=== PATIENT | male | born 1940 | race Caucasian/White ===

== ENCOUNTER → 2020-04-02 13:08 | Outpatient (CLI) | payer MEDICARE, OTHER, SELFPAY ==
[2020-04-02 13:50] LABS: Add Manual Diff / Slide Review NO; Basophils Absolute Auto 100 /uL (0-100); Basophils Percent Auto 1.1 % (0-2); Eosinophils Absolute Auto 300 /uL (0-450); Eosinophils Percent Auto 2.9 % (2-4); Hematocrit 40.3 % (41-53); Hemoglobin 13.6 g/dL (13.5-17.5); Lymphocytes Absolute Auto 700 /uL (1100-4500); Lymphocytes Percent Auto 7.4 % (25-40); Mean Corpuscular HGB Conc 33.8 % (30-36); Mean Corpuscular Hemoglobin 30.8 PG (26-34); Mean Corpuscular Volume 91.1 fL (80-100); Monocytes Absolute Auto 700 /uL (0-900); Monocytes Percent Auto 7.3 % (3-14); Neutrophils Absolute Auto 8000 /uL (1500-7000); Neutrophils Percent Auto 81.3 % (50-75); Platelet Count 229 X10^3/uL (150-400); Red Blood Cell Count 4.42 X10^6/uL (4.5-5.9); Red Cell Distribution Width 16.5 % (11.6-14.8); White Blood Cell Count 9.9 X10^3/uL (4.5-11.0)
[2020-04-02 15:34] LABS: BUN Creatinine Ratio 17.1 (6-22); Blood Urea Nitrogen 18 mg/dL (9-20); Calcium 9.6 mg/dL (8.4-10.2); Carbon Dioxide 24 mmol/L (22-32); Chloride 102 mmol/L (98-107); Estimated Glomerular Filt Rate > 60.0 mL/min (>60); Glucose 201 mg/dL (80-110); HEMOLYSIS < 15 (0-50); Potassium 4.9 mmol/L (3.4-5.1); Sodium 138 mmol/L (137-145)
== END ==
PROVIDERS: Referring Provider Orthopaedic Surgery; Visit Provider Orthopaedic Surgery
DX: Z01.818 Encounter for other preprocedural examination (principal); Z01.812 Encounter for preprocedural laboratory examination
CPT/HCPCS: 36415; 80048; 85025; 93005

== ENCOUNTER → 2020-04-05 10:55 | Outpatient (CLI) | payer MEDICARE, OTHER, SELFPAY ==
[2020-04-06 09:45] LABS: COVID19 Sendout NOT DETECTED (Not Detect)
== END ==
PROVIDERS: Visit Provider Physician Assistant
DX: Z01.812 Encounter for preprocedural laboratory examination (principal)
CPT/HCPCS: 87635

== ENCOUNTER 2020-04-08 10:50 | Inpatient (IN) | payer MEDICARE, OTHER, SELFPAY ==
[2020-04-01 13:58] VITALS: BMI 30.6
[2020-04-08] VITALS (17 sets, daily range): BP systolic 91–148; BP diastolic 52–84; PULSE 72–103; RESP 10–18; TEMP 36–37; O2SAT 75–97; BMI 30.6
--- NOTE | 2020-04-08 07:45 | DI.RAD.S_ITS ---
PROCEDURE: XR KNEE LT 1TO2V INDICATIONS: post op total knee TECHNIQUE: 2 view(s) of the knee acquired. COMPARISON: None. FINDINGS: Bones: Patient is status post knee joint arthroplasty. Hardware components are in expected positions. Visualized bony structures are intact. Soft tissues: Overlying postoperative changes are noted. Scattered vascular calcifications. IMPRESSION: Expected postoperative appearance Dictated by: Nate Batista M.D. on 04/08/2020 at 17:03 Approved by: Nate Batista M.D. on 04/08/2020 at 17:04
[2020-04-08] MEDS: CELECOXIB 200 MG CAPSULE PO (11:45)
[2020-04-08] MEDS: PREGABALIN 75 MG CAPSULE PO (11:45)
[2020-04-08] MEDS: ACETAMINOPHEN 325 MG TABLET 975 MG PO (11:46)
[2020-04-08] MEDS: LACTATED RINGERS 1,000 ML 42 ML IV ×2 (11:49→14:23)
--- NOTE | 2020-04-08 12:33 | PM.PREOP ---
Pre-operative Note COVID-19 COVID-19 status: Negative Result date/Date tested (Pos, Neg/Pending): 04/05/20 Interval Note History & Physical reviewed/Exam performed by Physician: Yes Changes to H&P: No
[2020-04-08] MEDS: INSULIN REGULAR 100 UNIT/ML 3 ML VIAL SUBCUT (13:13)
--- NOTE | 2020-04-08 14:03 | SUR.OPER ---
Supine on padded OR bed. Pillow under head, arms secured on padded armboards <90 degree abduction. Safety belt across torso. Non-operative leg secured with tape over blanket over leg. Operative leg secured in DeMayo/Ronny positioner. Foam padded brace at thigh of operative leg.
[2020-04-08] MEDS: CEFAZOLIN 2 GM/100 ML FROZ.PIGGY IV ×2 (14:14→21:56)
[2020-04-08] MEDS: BUPIVACAINE LIPOSOME 266 MG/20 ML VIAL INJ (14:15)
[2020-04-08] MEDS: TRANEXAMIC ACID 1,000 MG VIAL 2000 MG INJ ×2 (14:15→14:55)
[2020-04-08] MEDS: MORPHINE 4 MG/ML INJ INJ (14:16)
[2020-04-08] MEDS: BUPIVACAINE 0.25% W/ EPI 30 ML VIAL 60 ML INJ (14:16)
--- NOTE | 2020-04-08 14:29 | SUR.OPER ---
Pt.'s left foot red and swollen, noticed when patient positioned on OR bed, before the prep.
--- NOTE | 2020-04-08 15:21 | P.OP_ITS ---
Operative Date/Time/Diagnoses Date of procedure: 04/08/20 Time of procedure: 15:21 Pre-op diagnosis: Left knee osteoarthritis and chondrocalcinosis Post-op diagnosis: same Procedure & Clinicians Procedure: Left total knee replacement Same procedure as scheduled: Yes Indications: The patient has had progressively worsening left knee pain with radiographic changes consistent with arthritis and chondrocalcinosis. Non- operative management has failed and the patient has requested total knee replacement. The risks, benefits and alternatives to surgery were discussed with the patient prior to proceeding. Risks discussed included, but were not limited to, failure to relieve pain, stiffness, infection, nerve damage, deep venous thrombosis, pulmonary embolism, stroke, coma, heart attack, permanent paralysis and , as well as the potential need for eventual revision of the prosthetic. Surgeon: Zack Hernández [employer] Specialist: Elsa Samano Click Yes if Unassisted: No Anesthesia Type: General, Spinal and Local Operative Notes Findings: Severe medial and patellofemoral osteoarthritis with chondrocalcinosis in the cartilage and menisci. Closure Type: primary Specimen(s): none sent Prosthetic devices, grafts, tissues, transplants, or devices: Implants used in this procedure were manufactured by the [employer] and included the BCS II Journey total knee replacement with a size 5 left cobalt chromium femoral component, a size 5 left non porous tibial base plate, a 9 mm cross-linked constrained articular insert and a 35 mm oval Gracie II patella. Applied: implant(s) Estimated Blood Loss (mL): 25 Blood products transfused: none Tourniquet time (min): 57 Procedure in detail: The patient was seen in the pre-operative area, where the left knee was identified as the operative site and this was marked with my initials. The patient received pre-operative antibiotics, and was taken to the operating room and placed on the operative table in the supine position. After satisfactory anesthesia, a per diem physical therapist out was performed. The left leg was encircled with a tourniquet about the proximal thigh, and the leg was prepared from the toes to the tourniquet with ChloroPrep in the usual fashion and draped through sterile drapes. The leg was elevated and exsanguinated with Eschmark bandage and the tourniquet inflated to 250 mmHg pressure. The knee was approached through an approximately 18 cm incision centered over the patella and carried into the knee through a medial parapatellar arthrotomy. The anterior osteophytes and soft tissues were removed. The rotational landmarks of [place]'s line and the transepicondylar axis were marked on the femur with electrocautery, and intramedullary guide holes for the femur and tibia were created. The distal femoral cut was made in 6 degrees of valgus using the intramedullary guide at the +2 cut setting due to a pre-existing flexion contracture. The proximal tibial cut was then made using the intramedullary guide, taking 9 mm of bone off the less involved side. The extension gap was checked and the rotation of the femoral component confirmed with the gap sina ncing blocks, the flexion gap was slightly tight. The anterior, posterior and chamfer cuts were then made by downsizing the femoral component and moving it anteriorly to correct the tight flexion gap. The posterior osteophytes and soft tissues were then removed. The posterior capsule was injected with part of a mixture of 50 ml 0.25% Marcaine mixed with 20 ml Exparel and 4 mg of morphine for post-operative pain control. The remainder of this mixture was injected into the capsule and subcutaneous tissues during cement curing. The tibia was prepared with the rotation set by an extra medullary guide. Trial tibial and femoral components were then placed and the intercondylar notch cut through the femoral trial. Range of motion was 0-135 degrees, with good stability throughout the range except for mild gapping in deep flexion on the medial side. I elected to implant a constrained tibial insert as a result. This provided excellent stability throughout the range. The patella was then cut to accommodate the patellar prosthetic. There was no need for a lateral release. The trials were then removed, and the femoral hole plugged with a bone plug. The bone was prepared with pulsatile lavage, and dried with a sponge. Cement was applied and the final prosthetics placed. Excess cement was removed during and after cement curing. After confirming there was no extruded cement posteriorly, the final tibial insert was placed. The knee was copiously irrigated and the tourniquet deflated. Hemostasis was obtained. The capsule was closed with interrupted # 2 polyester sutures. The subcutaneous layer was closed with 3-0 Vicryl, and the skin with a running 3-0 V-Lock suture and Dermabond. An Aquacel Ag dressing was applied and the patient was taken to recovery having tolerated the procedure well. Complications: none Post-operative Condition: stable Disposition: PACU Plan for aftercare: The patient will be maintained on a standard total knee replacement protocol with weight bearing as tolerated. The patient will receive aspirin and sequential compression devices for DVT prophylaxis. The patient will be discharged home when safe for the home environment.
--- NOTE | 2020-04-08 16:13 | SUR.PHASEI ---
Patient A/O. Tolerating po. Able to lift left leg. Left DP +1. Left food red and edematous.
[2020-04-08] MEDS: LACTATED RINGERS 1,000 ML 100 ML IV (18:37)
[2020-04-08] MEDS: INSULIN ASPART 100 UNIT/ML INSULN PEN SUBCUT ×2 (18:38→21:58)
[2020-04-08] MEDS: DOCUSATE 100 MG CAPSULE PO (21:55)
[2020-04-08] MEDS: DABIGATRAN 75 MG CAPSULE 150 MG PO (21:55)
[2020-04-08] MEDS: ACETAMINOPHEN 325 MG TABLET 650 MG PO (21:55)
[2020-04-08] MEDS: TRAZODONE 50 MG TABLET PO (21:56)
--- NOTE | 2020-04-08 23:21 | PC.NURSE ---
Post-op note: Flora brought from PACU to rm 213, awake, oriented x3 and situation. VS stable, 2L O2 sat 92-98% depending on awakeness. I tried to wean O2 to 1L but continuous pulse ox alarmed at 88%, I then turned O2 back to 2L. He reports sleep apnea but said I don't even know where my machine is--I don't wear it, I haven't for a couple of years. IS & IS teaching given, rationale/prevention of pneumonia explained. Able to get to 2500 on IS. Instructed use q1hour. Reported numb to his left knee earlier but now reports good sensation to entire leg, wiggling toes LLE, doing ankle wave with LLE, wearing SCD to LLE. L heel sore where he reports hitting it with the wheel of his wheelchair, small dime-sized area of flaking skin observed. L foot edematous, earlier 2+ edema to foot, none to ankle or lower leg. Now edema 3+, LLE has been elevated on one pillow tonight. Pt said I usually elevate it in the evenings and it helps it go down. Reports RLE with BKA 1-1/2 years ago. RLE stump with healed scar, leg has good color, no redness or swelling. IVF infusing to LFA with no difficulty, antibx infused per schedule. Poor appetite, refused 1/2 of dinner, requesting protein drink instead. Since 2199 patient reports some urge to void, urinal at bedside. I instructed him to call us if he is unable to void, patient said it may help him to sit up and put his feet down. I told him we could either put the bed into chair position or assist him to sit up at the edge of bed with leg dangling. Fall precautions in place, patient using call button appropriately, alarm active for safety.
[2020-04-09] VITALS (7 sets, daily range): BP systolic 122–174; BP diastolic 71–96; PULSE 95–113; RESP 14–18; TEMP 36.2–37; O2SAT 92–97
[2020-04-09] MEDS: OXYCODONE IR 5 MG TABLET PO ×3 (01:44→09:35)
--- NOTE | 2020-04-09 02:23 | PC.NURSE ---
Addendum entered by Ida Marin R.N. 04/09/20 03:44: States pain improved to only 4/10 and requesting additional pain medication so given additional 5mg of Oxycodone (ordered for 5-10mg and was only given 5mg earlier). Still has been unable to urinate but still declines catheterization. Original Note: Patient is alert and oriented. Breath sounds CTA but was desating at shift change so placed on oxygen at 2L/min per NC with sat now at 96%; on continuous oximetry. HR irregular but rate controlled; has hx of afib. Has AICD. Denies nausea. BT present but denies flatus. Has not yet voided but denies feeling pressure/discomfort and doesn't feel urge to void. Bladder scan showing 407cc in bladder but patient declines in/out cath at this time. Is able to move himself in bed. Has not yet been out of bed following surgery yesterday. Has BKA of right leg. Aquacel dressing covered with santiago wrap to left LE is CDI. Wearing bilateral calf SCD's. States pain is now at 5/10 so medicated with Oxycodone; does have ice packs to knee. Fall risk score is moderate; bed alarm is activated.
[2020-04-09] MEDS: LACTATED RINGERS 1,000 ML 100 ML IV (04:48)
[2020-04-09] MEDS: LEVOTHYROXINE 125 MCG TABLET PO (05:32)
[2020-04-09] MEDS: CEFAZOLIN 2 GM/100 ML FROZ.PIGGY IV (05:32)
[2020-04-09 06:38] LABS: Hematocrit 35.6 % (41-53)
--- NOTE | 2020-04-09 07:55 | PM.PNPO.1 ---
Subjective Subjective Date Patient Seen: 04/09/20 Time Patient Seen: 07:55 Interval history: No significant complaints this morning. Pain is under control. Exam Vital Signs (past 8 hours): - 04/09/20 04:43 Temperature 98.5 F Pulse Rate 99 H Respiratory Rate 18 Blood Pressure 122/71 Pulse Oximetry 94 Oxygen Delivery Method Nasal Cannula Oxygen Flow Rate 2 Narrative Exam Narrative: Left knee wound is dressed with no drainage on the bandage. Calf is soft. Light touch and motion are intact in the left lower extremity. Objective Labs Result Diagrams: 04/09/20 06:20 Labs: Laboratory Results - last 24 hr 04/09/20 06:20 Hgb 12.0 L Hct 35.6 L Assessment & Plan Post-op Postoperative Procedures: Procedures Operation Date: 04/08/20 12:45 Actual Procedures Side Surgeon p Total Knee Arthroplasty Left Zack Hernández MD Postoperative day: 1 Postoperative status: doing well Postoperative status narrative: Stable postoperative day 1 status post left total knee replacement. The patient also has a right below-knee amputation which will significantly delay his rehabilitation and probably will require residential facility placement prior to his return to his assisted living facility. The patient also has diabetes which will be monitored and appropriately treated with a sliding scale in addition to his metformin. Postoperative plan: routine post-op care Postoperative plan narrative: Physical therapy today. We will monitor his progress and depending on how well he does he may go to his assisted living or residential. Discharge planning has been consulted to arrange for this. Time Spent With Patient Time with patient: less than 15 minutes
[2020-04-09] MEDS: FLUoxetine 10 MG CAPSULE PO (08:52)
[2020-04-09] MEDS: INSULIN ASPART 100 UNIT/ML INSULN PEN SUBCUT ×4 (08:53→21:14)
[2020-04-09] MEDS: DOCUSATE 100 MG CAPSULE PO ×2 (08:59→21:08)
[2020-04-09] MEDS: METFORMIN HCL 500 MG TABLET 1000 MG PO ×2 (08:59→17:45)
[2020-04-09] MEDS: POTASSIUM CHLORIDE 10 MEQ TAB PO (08:59)
[2020-04-09] MEDS: PANTOPRAZOLE 20 MG TABLET PO (08:59)
[2020-04-09] MEDS: ACETAMINOPHEN 325 MG TABLET 650 MG PO ×3 (09:00→21:08)
[2020-04-09] MEDS: DULOXETINE 30 MG CAPSULE PO (09:00)
[2020-04-09] MEDS: ASPIRIN EC 81 MG TABLET PO (09:00)
[2020-04-09] MEDS: ATORVASTATIN 20 MG TABLET PO (09:00)
[2020-04-09] MEDS: FUROSEMIDE 40 MG TABLET PO (09:01)
[2020-04-09] MEDS: METOPROLOL ER 50 MG TABLET PO (09:01)
[2020-04-09] MEDS: DABIGATRAN 75 MG CAPSULE 150 MG PO ×2 (09:03→21:13)
[2020-04-09] MEDS: FERROUS SULFATE 325 MG TABLET PO (09:03)
[2020-04-09] MEDS: HYDROMORPHONE 0.5 MG INJ 0.2 MG IV (10:34)
--- NOTE | 2020-04-09 11:09 | PT.IIE ---
Current Diagnoses Other chondrocalcinosis, unspecified site (04/08/20) Bilateral primary osteoarthritis of knee (04/08/20) Surgery Performed Operation Date: 04/08/20 12:45 Actual Procedures p Total Knee Arthroplasty(Left) - Zack Hernández MD Surgical History (Last Updated 04/01/20 @ 14:22 by Jamila Velasco, RN) History of right below knee amputation (Acute 2018) History of total right hip arthroplasty (Acute) History of vasectomy (Acute) Hx of hernia repair (Acute) Hx of right knee surgery (Acute) Hx of thumb surgery (Acute) Medical History (Last Updated 04/02/20 @ 12:35 by Jamila Velasco RN) Arrhythmia (Acute) Atrial fibrillation (Acute) Cardiac defibrillator in place (Acute 2013) CHF (congestive heart failure) (Acute) Depression (Acute) Diabetes (Acute) Diabetic ulcer of toe (Acute) Diverticulitis (Acute 1998) Easy bruisability (Acute) Edema (Acute) HLD (hyperlipidemia) (Acute) HTN (hypertension) (Acute) Hx of agent [place] exposure (Acute) Hypothyroid (Acute) Large bowel perforation (Acute 1998) Myocardial infarction (Acute 1998) Osteoarthritis (Acute) Prostate cancer (Acute) Sleep apnea (Acute) Physical Therapy Inpatient Evaluation/Re-Eval M1 PT/OT-IP Prior Functional Status Start: 04/09/20 08:27 Freq: NEEDED Status: Active Protocol: Document 04/09/20 08:58 HH (Rec: 04/09/20 09:40 [id number]) Medical Review Prior Functional Status Medical History Reviewed Yes Diet/Fluid Consistency Regular Communication no deficits noted. able to make needs known. [place] Mobility and Gait Pt was not mobile for the past 3-4 months d/t L knee pain and he has been w/c bound. Pt has been using stand pivot for toilet/ shower bench transfer but has not been walking. Pt has BKA approx 2 years ago and he was able to amb without AD at one point. He described he always WB mostly on his LLE. Activities of Daily Living and IADL's Pt has been using W/C and stand pivot for toilet/ shower bench transfer without assistance. Pt lives in a SNF with elevator access. Social History Household Members none Living Arrangements Assisted Living Number of Floors (Floors) 3 or More Floors Number of Stairs To Enter/Railing? SNF with elevator accesss Home Environment High Toilet,Walk in Shower Home Equipment Four Wheel Walker,Straight Cane,Raised Toilet Seat w/ Armrests,Tub Transfer Bench, Grab Bars Near Toilet,Grab Bars In Shower Employment Status Retired Additional Social History Comment Pt lives in an KEL in [facility] who had BKA approx 2 years ago but pt has significant decline in mobility d/t increase in L knee pain. M2 PT-IP Current Condition Start: 04/09/20 08:27 Freq: NEEDED Status: Active Protocol: Document 04/09/20 08:58 HH (Rec: 04/09/20 09:40 [email or web address]) Physical Therapy Current Condition Current Condition Evaluation Date 04/09/20 Treatment Diagnosis L TKA, R BKA 2 years ago, difficulty in walking. Onset Date 04/08/20 Weight Bearing Status Weight Bearing Status Weight Bear as Tolerated M3 PT-IP Subjective Start: 04/09/20 08:27 Freq: NEEDED Status: Active Protocol: Document 04/09/20 08:58 HH (Rec: 04/09/20 09:40 [email or web address]) Subjective Physical Therapy Visit Type Type Initial Evaluation Visit Start Time 08:58 Visit Stop Time 09:25 Total Visit Minutes 27 Number of POLY OPERATOR Visits 0 Physical Therapy Visit Comments Patient Comments My knee hurts like hell but i want to try to get out of bed . Patient Goals To return his KEL if possible Therapy Pain Assessment Pain When Pain Assessed During Mobility Pain Present Pain Present Pain Reported Location Left Knee Intensity 8 Scale Used Numeric (0 - 10) Description Acute,With Movement Pain Behaviors Calling Out,Facial Grimacing, Guarding Pain Management Techniques Apply Cold,Re-positioning, Timing of Activity with Medications M4 PT-IP Mobility and Gait Start: 04/09/20 08:27 Freq: NEEDED Status: Active Protocol: Document 04/09/20 08:58 HH (Rec: 04/09/20 09:40 [id number]) PT-Bed Mobility Assessment Rolling Type of Rolling Roll to Right Level of Assist Minimal Assistance Supine to Sit Supine to Sit Minimal Assistance,Head of Bed Elevated,Bedrails Sit to Supine Sit to Supine Minimal Assistance,Bedrails Scooting Scooting to Edge of Bed Contact Guard Assistance Scooting Up and Down in Bed Moderate Assistance PT-Transfer Assessment Sit to and From Stand Sit to and from Stand Moderate Assistance,2 Person Assistance,Use of Upper Extremities Comments Mobility Comments Pt was in elevated HOB at 30 degrees upon PT arrival. SpO2 at 95% with 2 L NC. Pt c/o pain at 6-7/10 at rest. L foot with mild pitting edema and warm to touch. Pt described it as chronic DM and heart disease. Pt agreed to mobilize with PT. Educated pt to use gait belt to pivot his LLE. Pt was able to complete for supine to sit to R side from elevated head of bed but slowly d/t pain. Pt need CGA/ min A to prevent leaning backward. He then sat at the edge and was able to scoot towards EOB with CGA. Pt took 5-6 minutes to put on his R prothesis d/t some swelling on his stump and pt was instructed to do seated heel slide but severe pain is noted . Pt was able to morgan his prosthesis after and attempted STS from raised bed after with FWW 2PA. Pt had difficulty stand up fully d/t severe L knee pain and he had to sit down immediately. Attempted STS 3 times at bedside but unsuccessful. Requested to return to bed and needed min A on L LE for sit to supine followed by 2pa scooting upward in bed. Pt then used urinal for pericare in bed and placed pillow underneath his L knee and SCD. Left pt with call light at bedside. Educated him to practice quad set for next session. SpO2 at 95% with 2L NC Gait Assessment Comments Gait Comments unable Stair Climbing Assessment Comments Stair Climbing Comments unable PT-Balance Assessment Sitting Balance and Reactions Static Sitting Balance Ability Normal Dynamic Sitting Balance Ability Normal Standing Balance and Reactions Static Standing Balance Ability Fair Dynamic Standing Balance Ability Poor Device Used FWW M5 PT-IP Objective Assessments Start: 04/09/20 08:27 Freq: NEEDED Status: Active Protocol: Document 04/09/20 08:58 (Rec: 04/09/20 11:09 [email or web address]) Orientation Orientation/Cognition Level of Alertness Alert Orientation Name Language Function Ability No Deficits Noted,Hard of Hearing Safety Awareness Understands Safety Issues Memory Description No Deficits Noted Gross Range of Motion Upper Extremity ROM Assessment Within Functional Limits Lower Extremity ROM Assessment Left Impaired Impairments 15- 88 degrees of L knee AROM Strength Upper Extremity Strength Assessment Within Functional Limits Lower Extremity Strength Assessment Left Impaired Hip 4/5 Knee 3+/5 Ankle 4/5 Sensation Assessment Sensation Gross Sensation Left LE Impaired Sensation Description Pain M6 PT-IP Treatment Start: 04/09/20 08:27 Freq: NEEDED Status: Active Protocol: Document 04/09/20 08:58 HH (Rec: 04/09/20 11:09 HH [email or web address]) Physical Therapy Treatment Exercises Exercises Quad Sets,Heel Slides Education Education Provided Precautions,Weight Bearing Status,Post-Op Packet,Safety Other Treatments Other Treatment Performed educated pt on seated heel slide and supine quad sets to facilitate sit to stand for next session M7 PT-IP Assessment and Plan Start: 04/09/20 08:27 Freq: NEEDED Status: Active Protocol: Document 04/09/20 08:58 HH (Rec: 04/09/20 11:09 [email or web address]) PT Summary Assessment and Plan Summary Impairments Pain,ROM,Strength,Balance,Bed Mobility,Transfers,Gait, Activity Tolerance Assessment Summary This is a high complexity evaluation for this 80yo male with POD1 L TKA who is also a L below knee amputee. Pt has a poor mobility prior to sx who was w/c bound and only did stand pivot transfer for ADLs but independently at his KEL. Upon assessment, pt presents with severe pain 7-10/10 and worse with mobility. He was unable to complete sit to stand at bedside with 2PA and FWW with multiple attempts d/t severe pain. He is currently far from his baseline and needed extensive assistance for self care. Recommend to have OT consult as well. Expect pt to need skilled rehab to improve his overall strength and mobility. Goals Bed Mobility Goal Contact Guard Assistance Transfer Goal Minimal Assistance,Front Wheeled Walker Gait Goal Minimal Assistance,Front Wheel Walker Gait Distance 5 feet Other Goals stand pivot to BSC, chair, toilet Days to Meet Goals 5 Frequency of Treatment Frequency Of Treatment Twice a Day Treatment Plan Physical Therapy Treatment Plan Bed Mobility Training,Transfer Training,Gait Training, Therapeutic Exercise,Balance Retraining,Post Op Education, Discharge Planning,Hot or Cold Pack,Neuromuscular Re-ed Other Recommendations and Next Treatment try log roll for bed mobility Focus d/t R stump quad set , seated heel slide STS and possibly transfer with FWW if possible Recommendations To Nursing Amount of Assist Needed PT/OT Assist Only Discharge Recommendations PT Discharge Recommendations SNF Rehab Equipment Needed for Home Before FWW if going home Discharge Transportation Needs at Discharge Wheelchair/Cabulance
[2020-04-09] MEDS: OXYCODONE IR 10 MG TABLET PO ×2 (12:33→16:34)
--- NOTE | 2020-04-09 13:59 | PT-IP ANOTE ---
Unable to participate with therapy as pt is having difficulty staying awake and states he is very groggy. Will check back with pt later today or tomorrow morning.
--- NOTE | 2020-04-09 16:00 | PC.NURSE ---
Addendum entered by Sepideh Rose R.N. 04/09/20 16:12: Below entry was a late entry for day shift Original Note: Pain control, mentation: Patient C/O a lot of pain in L operative knee and has had difficulty getting comfortable. Never rated pain less than 7/10 when awake and was unable to get OOB with PT r/t pain (has [id number] amputation of RLE which made mobilizing on operative leg more difficult). Switched from 5 mg to 10 mg Oxycodone for pain, in addition to scheduled Tylenol. Given 0.2 mg IV Dilaudid X1 for breakthrough pain (see e-mar). Patient this afternoon awakens easily, but seems to be a bit confused. Remains on 2.5L O2 (de-sats on RA asleep). Dressing to L knee C/D/I, circulation/sensation WNL. PP+, w/cap refill <2 sec. Voided X2 for total 550 ml. Able to make needs known and has been calling appropriately. Light and belongings within reach, bed alarm on.
--- NOTE | 2020-04-09 17:37 | CM.DANOTE ---
DCP/Assessment: Reviewed chart. Patient is a 80yr old male admitted to [facility] for elective left TKA performed by Dr. Hernández on 04-08-20. Patient is inpatient status from time of admit. PCP is Dr. Gonzalez at [facility] on [address]. Met with patient explained CM/SW role. Patient sleepy at time of visit but aware of d/c plan. Patient reports that he resides at assisted living at [facility] and would like to go to [facility] when medically appropriate to do so. Patient eligible for SNf on 04-11-20. LAUNDRY OPERATOR FINISHING placed call to Sylvia at [facility], she is aware of patient and requesting that clinical be faxed. Sylvia does anticipate that they will be able to accept. Left note for TAMMI/Quin to fax clinical to [facility] in AM on 04-10-20. PASRR needs to be completed as well. Patient with several medical limitations that require SNF level of care at time of d/c. PT/OT consulted and recommend SNF. Patient has had previous right BKA which significantly affects his progress with mobilization. Patient primarily in w/c prior to admit due to bad knee patient hopes to now be able to return to using a walker. P: [facility] reviewing for admit. CM team to check in with [facility] on Wednesday to determine acceptance? Anticipate that [facility] will provide transport. CM team following closely to finalize plan. JENARO Foote Discharge Planning/Care Management CM Discharge Assessment Start: 04/09/20 17:30 Freq: Status: Active Protocol: Document 04/09/20 17:30 KJS (Rec: 04/09/20 17:37 KJS [id number]) Discharge Planning Assessment Assigned [employer] Team Member JENARO Foote Contact Information Prabhjot Reich (son) ph# [phone] Advance Directives? Yes History Provided By Patient,Medical Record Has Patient been admitted in last 30 No days? Prior Living Arrangements Assisted Living Household Members none Type of transporation used prior to Relies on Others admit Facility Name Admitted From: [facility] Independent with ADL's No Is patient alert and oriented? Yes Needs Assistance With Bathing,Meal Prep,Managing Medications,Home Chores / Shopping Caregiver for Another No DME Already Rented / Owned Wheelchair,FWW / Walker Patient/Family Preference Halfway Facility Barriers to Discharge No Discharge Plan Halfway Facility Transportation Arrangement Facility to transport Referrals Initiated Halfway If patient plan is SNF: Has PASSR been No: Need PASRR prior to d/c completed? Medicare Choice List Provided Yes SNF/HH Preference [facility] Contact Name/Phone Sylvia alcocer# [phone] Has Agency SNF been contacted Yes Comment Left request for TAMMI/Quin to fax clinicals to [facility] in AM on 04-10-20 Whiteboard Updated in Patient Room with Yes name and ext. # of [employer] Team Member Review Status In Process Next Review Type Continued Stay Review Pre-Anesthesia Assessment Start: 04/01/20 13:58 Freq: Status: Complete Protocol: Document 04/01/20 13:58 CAB (Rec: 04/01/20 14:56 CAB [id number]) Pre-Anesthesia Assessment PAC Comment Patient takes all medication in applesauce Patient Information Reviewed Via Phone Assessment Assessment Completed With Patient Specialist Seen Attendant Campground,Criminal Attorney Primary Language Libyan Electronic Lab Technician Required No Height 182.88 cm Weight 102.512 kg Body Mass Index (BMI) 30.6 Hearing Ability Normal Visual Assist Magnifying Glass Dentition Type Teeth, Natural Present,Teeth, Missing Barriers to Learning None Hx Anesthesia Reactions Yes: I have a real hard time coming back around after anesthesia Additional comment I have a narrow opening Hx Family Anesthesia Reaction Yes: Sister-hard time coming out of anesthesia Hx Malignant Hyperthermia No Hx Blood Transfusions Yes: r/t bowel perf Hx Blood Transfusion Reaction No Comment MARTY-declines to use CPAP Anesthesia Review Requested No alcohol intake current alcohol intake frequency holidays/special occasions only Smoking Status Former smoker Tobacco type cigarettes,cigars how long ago did patient quit smoking Quit 40 years ago Substance Use Type does not use Pain Present Pain Reported Musculoskeletal Symptoms Abnormal Gait,Difficulty Walking,Joint Pain,Joint Stiffness History of Falling (Recent or History of No ) Patient is completely paralyzed or No completely immobile Prosthesis or Orthotic Device Cane,Front Wheel Walker Mental Status Oriented to own ability Is patient on oxygen? No Does patient have MEAD/SOB Yes Hx Sleep Apnea Yes CPAP/BIPAP use prescribed not used Currently Taking a Beta Ingris Yes: Metoprolol Can You Climb a Flight of Stairs Without No SOB Hx Chest Pain No Hx SOB Yes Hx Syncope or Dizziness No Anti-Coagulant Therapy Yes: Pradaxa-PCP will advise pt on when to hold Has a Attendant Campground Yes: Dr. Evangelista-last visit Cardiac Testing Last Echo 2018 EF 35-40% Hx Pacemaker/ICD Yes: ICD Pacemaker Rep Required? No: Pacemaker form scanned in and in surgery folder Comment Cardiac records scanned to record Diet Type At Home Regular dysphagia Yes: Always, meds in applesauce Gastrointestinal Symptoms Reflux Urinary Catheter Present No Hx Urinary Self Catheterization No Diabetes Yes: Pt checks twice a day Hx Drug Resistant Organism Yes: C-Diff approx 14 months ago Presence of External or Internal Medical Yes: Right leg prosthesis, Devices right hip implant Have you had any close contact with No someone diagnosed with COVID-19? Evaluation/Screening for possible COVID- Yes 19 infection completed? Marital Status / Lives With none Prior Living Arrangements Assisted Living Support System Child/Children Does the Patient Have Assistance After Yes: Assisted living will Surgery assist, son will be checking in Patient Discharge Plan Description Halfway Facility/Rehab Comment Lives @ [facility] in [place] Feels Safe in Current Environment Yes Been Physically Hurt or Threatened By a No Person in Current Environment Do you have thoughts of harming yourself None or others? Are you currently considering suicide? No Do you have a plan to hurt yourself or No Plan others? Do You Have Any Spiritual Beliefs That No May Affect Your HC Choices? Do You Have Any Cultural Practices That No May Affect Your HC Choices? Comment [facility] Who Can We Speak to About Patient's Care Family, friends Identifying Code for Release of Patient Declines to issue Information Health Care Proxy/Next of Kin Prabhjot Nietoson) Health Care Proxy Phone Number Pt to update dos Emergency Contact Name Prabhjot Nietoson) Emergency Contact Phone Number Pt to update dos Advance Directives? Yes Power of Vacuum Caster Yes Power of Vacuum Caster Name Prabhjot ferrell) Power of Vacuum Caster Phone Number Pt to update dos PAC Instructions Diabetes instructions,Durable medical equipment,Medications to take/avoid,Nasal antibiotic ,No ETOH/petroleum product on skin DOS,NPO,Post-op transportation,Pre-surgical wash,Sturdy shoes/comfortable clothes,Do not bring valuables and remove jewelry
--- NOTE | 2020-04-09 20:01 | PC.NURSE ---
Evening note: Flora is increasingly confused tonight, day shift RN noticed he seemed to be confused this afternoon after receiving oxycodone 10 mg. He couldn't tell me where we were, when asked if he remembered that he had surgery he said yes. Answers delayed, speech is clear. His friend called, he was not able to have conversation with friend, saying my leg is in bad shape right now, and I can't figure out this phone. Pulled O2 NC off his face, then said I thought that was my sunglasses. BP 174/96, pulse 110, rates pain at 7/10, grimaces when repositioned even just slight. Face red, he is sweaty. Denies chest pain, SOB or nausea. Either incontinent or spilling urinal, linens soaked underneath him. Full linen change done, patient not tolerating movement very well, facial grimace, yelling ow! and gripping side rails. Only picked at his meal. CBG pre-meal was 239, medicated with 2 units SS Novolog. I notified Dr Crawford of patients increased confusion, elevated BP and cardiac history. she ordered 1 time dose of Toradol 10 mg IV, and to switch from oxycodone to PO Dilaudid 2-4 mg. She told me wait to give the Dilaudid until the Toradol has time to work. I clarified Toradol with Dr Crawford & she is aware that patient takes Pradaxa.
[2020-04-09] MEDS: KETOROLAC 15 MG/ML VIAL 10 MG IV (21:07)
[2020-04-10 00:25] VITALS: BP 149/88; PULSE 101; RESP 18; TEMP 36.7; O2SAT 97
[2020-04-10 04:29] VITALS: BP 141/88; PULSE 108; RESP 18; TEMP 36.6; O2SAT 94
[2020-04-10] MEDS: HYDROMORPHONE 0.5 MG INJ 0.2 MG IV (04:30)
[2020-04-10] MEDS: LEVOTHYROXINE 125 MCG TABLET PO (05:14)
--- NOTE | 2020-04-10 07:10 | P.PN_ITS ---
Subjective Subjective Date Patient Seen: 04/10/20 Time Patient Seen: 07:10 Interval history: The patient was sleepy yesterday afternoon and did not do physical therapy. He is having increased pain this morning as the block has worn off but it is still within tolerable limits. Exam Vital Signs (past 8 hours): - 04/10/20 00:25 04/10/20 04:29 Temperature 98.0 F 97.9 F Pulse Rate 101 H 108 H Respiratory Rate 18 18 Blood Pressure 149/88 H 141/88 H Pulse Oximetry 97 94 Oxygen Delivery Method Nasal Cannula Oxygen Flow Rate 2 Narrative Exam Narrative: Left knee wound is dressed with no drainage on the bandage. Calf is soft. Light touch and motion are intact in the left lower extremity. Objective Labs Result Diagrams: 04/09/20 06:20 Assessment & Plan Post-op Postoperative Procedures: Procedures Operation Date: 04/08/20 12:45 Actual Procedures Side Surgeon p Total Knee Arthroplasty Left Zack Hernández MD Postoperative day: 2 Postoperative status: doing well Postoperative status narrative: The patient is stable postoperative day 2 status post left total knee replacement. He is a right below knee amputee and this is slowing his rehabilitation. Postoperative plan: routine post-op care and ambulate Postoperative plan narrative: We will continue physical therapy today. Depending on how well he does with therapy we will determine tomorrow morning whether he is to be transferred to half-way or whether he can go to his assisted living facility directly. Time Spent With Patient Time with patient: less than 15 minutes
[2020-04-10 08:00] VITALS: BP 147/96; PULSE 113; RESP 18; TEMP 36.5; O2SAT 92
[2020-04-10] MEDS: ACETAMINOPHEN 325 MG TABLET 650 MG PO ×3 (09:01→20:40)
[2020-04-10] MEDS: METFORMIN HCL 500 MG TABLET 1000 MG PO ×2 (09:01→16:29)
[2020-04-10] MEDS: DOCUSATE 100 MG CAPSULE PO ×2 (09:02→20:39)
[2020-04-10] MEDS: ATORVASTATIN 20 MG TABLET PO (09:02)
[2020-04-10] MEDS: DULOXETINE 30 MG CAPSULE PO (09:02)
[2020-04-10] MEDS: ASPIRIN EC 81 MG TABLET PO (09:02)
[2020-04-10] MEDS: DABIGATRAN 75 MG CAPSULE 150 MG PO ×2 (09:02→20:38)
[2020-04-10] MEDS: FUROSEMIDE 40 MG TABLET PO (09:03)
[2020-04-10] MEDS: METOPROLOL ER 50 MG TABLET PO (09:03)
[2020-04-10] MEDS: HYDROMORPHONE 2 MG TABLET PO ×2 (09:03→18:16)
[2020-04-10] MEDS: FLUoxetine 10 MG CAPSULE PO (09:03)
[2020-04-10] MEDS: POTASSIUM CHLORIDE 10 MEQ TAB PO (09:03)
[2020-04-10] MEDS: FERROUS SULFATE 325 MG TABLET PO (09:03)
[2020-04-10] MEDS: PANTOPRAZOLE 20 MG TABLET PO (09:03)
[2020-04-10] MEDS: INSULIN ASPART 100 UNIT/ML INSULN PEN SUBCUT ×4 (09:04→20:41)
--- NOTE | 2020-04-10 11:06 | OT.IP.EVAL ---
Current Diagnoses Other chondrocalcinosis, unspecified site (04/08/20) Bilateral primary osteoarthritis of knee (04/08/20) Surgery Performed Operation Date: 04/08/20 12:45 Actual Procedures p Total Knee Arthroplasty(Left) - Zack Hernández MD Past Medical History (Last Updated 04/02/20 @ 12:35 by Jamila Velasco, RN) Arrhythmia (Acute) Atrial fibrillation (Acute) Cardiac defibrillator in place (Acute 2013) CHF (congestive heart failure) (Acute) Depression (Acute) Diabetes (Acute) Diabetic ulcer of toe (Acute) Diverticulitis (Acute 1998) Easy bruisability (Acute) Edema (Acute) HLD (hyperlipidemia) (Acute) HTN (hypertension) (Acute) Hx of agent [place] exposure (Acute) Hypothyroid (Acute) Large bowel perforation (Acute 1998) Myocardial infarction (Acute 1998) Osteoarthritis (Acute) Prostate cancer (Acute) Sleep apnea (Acute) Surgical History (Last Updated 04/01/20 @ 14:22 by Jamila Velasco RN) History of right below knee amputation (Acute 2017) History of total right hip arthroplasty (Acute) History of vasectomy (Acute) Hx of hernia repair (Acute) Hx of right knee surgery (Acute) Hx of thumb surgery (Acute) Occupational Therapy Inpatient Evaluation/Re-Eval M1 PT/OT-IP Prior Functional Status Start: 04/10/20 15:50 Freq: NEEDED Status: Active Protocol: Document 04/10/20 11:06 [facility] (Rec: 04/10/20 16:16 [facility] [id number]) Medical Review Prior Functional Status Medical History Reviewed Yes Diet/Fluid Consistency Regular Communication no deficits noted. able to make needs known. NEWTOK Mobility and Gait Pt was not mobile for the past 3-4 months d/t L knee pain and he has been w/c bound. Pt has been using stand pivot for toilet/ shower bench transfer but has not been walking. Pt has BKA approx 2 years ago and he was able to amb without AD at one point. He described he always WB mostly on his LLE. Activities of Daily Living and IADL's Pt has been using W/C and stand pivot for toilet/ shower bench transfer without assistance. Pt lives in a RESIDENTIAL with elevator access. Social History Household Members none Living Arrangements Assisted Living Number of Floors (Floors) 3 or More Floors Number of Stairs To Enter/Railing? [facility] with elevator accesss Home Environment High Toilet,Walk in Shower Home Equipment Four Wheel Walker,Straight Cane,Raised Toilet Seat w/ Armrests,Tub Transfer Bench, Grab Bars Near Toilet,Grab Bars In Shower Employment Status Retired Additional Social History Comment Pt lives in an RESIDENTIAL in [facility] who had BKA approx 2 years ago for RLE but pt has significant decline in mobility d/t increase in L knee pain. M2 OT-IP Current Condition Start: 04/10/20 15:50 Freq: Status: Active Protocol: Document 04/10/20 11:06 [facility] (Rec: 04/10/20 16:16 [facility] [id number]) Occupational Therapy Current Condition Current Condition Evaluation Date 04/10/20 Treatment Diagnosis L TKA, decreased self care and mobility Diagnosis Onset Date 04/08/20 Weight Bearing Status Weight Bearing Status Weight Bear as Tolerated M3 OT- IP Subjective and Pain Start: 04/10/20 15:50 Freq: Status: Active Protocol: Document 04/10/20 11:06 [facility] (Rec: 04/10/20 16:16 [facility] [id number]) OT- Subjective Occupational Therapy Visit Type Type Initial Evaluation Visit Start Time 11:06 Visit Stop Time 12:10 Total Visit Minutes 64 Occupational Therapy Visit Comments Patient Comments Pt agreeable to get up , CELL ROOM SUPERVISOR present due to pt needing extensive assist for mobility needs. Patient/Caregiver Goals Pt realizing will need to go to skilled rehab prior to going home. OT Pain Assessment Pain When Pain Assessed During Mobility Pain Present Pain Present Pain Reported Location Left Knee Intensity 4 M4 OT- IP ADL's Start: 04/10/20 15:50 Freq: Status: Active Protocol: Document 04/10/20 11:06 [facility] (Rec: 04/10/20 16:16 [facility] [id number]) OT ARQ-Kupp-Yarqloe Comments OT Self-Feeding Comments not at meal time OT ADL-Grooming Comments OT Grooming Comments Pt able to wash his face and brush his hair after items given. OT ADL-Dressing General Eval Lower Body Dressing Ability Maximum Assistance Areas Needing Assistance Socks,Shoes Comments OT Dressing Comments Pt needing assist for all LLE dressing needs of sock and shoe due to unable to reach due to pain and limited bending at this time due to recent L TKA. Pt able to morgan his right prosthesis given set-up and mainly just needing to hold his right shoe to be able to push into it and having the hospital bed up higher for leverage. Educated pt to scoot forwards to help increase bend in left knee in addition to assist to help get his sock and shoe on. Initiated possible need of LB dressing equipment pending his progress and pain of left knee. OT ADL-Toileting Comments OT Toileting Comments Pt's brief soiled and MAX A to roll and get brief off and dependent to get over his legs and assist x2 to stand while nursing aid assisting to help pull up over his hips. OT ADL-Bathing Bathing Type Bathing Type Sponge Bath General Evaluation Bathing Ability Moderate Assistance Comments OT Bathing Comments Pt able to sponge off while seated in bed for pericare needs and needing assist to wash his back at this time. M6 OT- IP Functional Cognition Start: 04/10/20 15:50 Freq: Status: Active Protocol: Document 04/10/20 11:06 [facility] (Rec: 04/10/20 16:16 [facility] [id number]) Cognitive Factors Limiting Selfcare Function Cognitive Ability Level of Alertness Alert Patient Orientation Name,Age,Birthday,Month,Date, Year,Day of Week,Place, Situation Attention Span Ability Capable of Focused Attention, Capable of Sustained Attention Ability to Follow Commands Able to Follow Multi-Step Commands Cognitive Comments Cognitive Assessment Comments Pt appears at baseline with no cognitive deficits, initial reminder to use one hand to push from the surface sitting on before standing. M7 OT- IP Mobility and Balance Start: 04/10/20 15:50 Freq: Status: Active Protocol: Document 04/10/20 11:06 [facility] (Rec: 04/10/20 16:16 [facility] [id number]) OT- Bed Mobility Assessment Rolling Type of Rolling Roll to Left Supine to Sit Supine to Sit Assist Maximum Assistance,1 Person Assistance Sit to Supine Sit to Supine Assist Moderate Assistance,2 Person Assistance OT-Transfer Assessment Sit to and From Stand Sit to and from Stand Moderate Assistance,2 Person Assistance Transfers Transfer Ability Minimal Assistance,Moderate Assistance,2 Person Assistance Technique Transfer Destination Bed,Wheelchair Transfer Technique Stand Step Pivot Devices Transfer Assistive Devices Gait Belt,Front Wheeled Walker ,Sliding Board Comments Mobility Comments Pt O2 on RA form 94-98% throughout the session, nursing notified. MODA X 2 to stand , heavy use of BUE on the FWW able to transfer to his wc. Pt too tired after standing a few times and then use of sliding board, BOYD for placement and assist to help align his knee while scooting across back over to the bed.Therefore BOYD x2. OT- Gait Assessment Comments Gait Ability Comments No at this time. OT- Balance Assessment Sitting Balance and Reactions Static Sitting Balance Ability Normal Dynamic Sitting Balance Ability Good Standing Balance and Reactions Static Standing Balance Ability Poor Dynamic Standing Balance Ability Poor M8 OT- IP Objective Assessments Start: 04/10/20 15:50 Freq: Status: Active Protocol: Document 04/10/20 11:06 [facility] (Rec: 04/10/20 16:16 [facility] [id number]) OT Gross Range of Motion Upper Extremity Range of Motion Assessment Within Functional Limits OT Strength Upper Extremity Strength Assessment Within Functional Limits OT-Muscle Tone Assessment Muscle Tone WNL Yes M9 OT- IP Assessment and Plan Start: 04/10/20 15:50 Freq: Status: Active Protocol: Document 04/10/20 11:06 [facility] (Rec: 04/10/20 16:16 [facility] [id number]) OT Summary Assessment and Plan Potential Rehabilitation Potential Excellent Analytic Complexity at Evaluation Low Summary OT Impairments Pain,Functional Mobility, Grooming,Dressing,Toileting, Bathing,Toilet Transfers, Shower Transfers,Activity Tolerance Progress Towards Goals Progressing Toward Goals Assessment Summary Pt low complexity and main barriers are pain, limited functional movement with LLE therefore now needing extensive assist for all Adl and functional mobility needs and just able to transfer with two person and needing 2-3 persons to assist to stand and help get brief on. Prior pt was completely independent with all mobility and ADl needs and will benefit from skilled rehab. Pt is highly motivated and cooperative and a great candidate to do well. Goals Grooming Goal Independent Dressing Goal Independent Toileting Goal Independent Bathing Goal Independent Toilet Transfer Goal Independent Shower Transfer Goal Independent Days to Meet Goals 15 Frequency of Treatment Frequency Of Treatment Once a Day Treatment Plan OT Treatment Plan ADL Training,Functional Mobility,Patient/Family Education,Discharge Planning Other Treatment Recommendations and Next Stand pivot transfer to [facility] Treatment Focus BOYD x2. Discharge Recommendations OT Discharge Recommendations SNF Rehab Home Equipment Needs defer to SNF Transportation Needs at Discharge Wheelchair/Cabulance
--- NOTE | 2020-04-10 11:21 | CM.DPC ---
Addendum entered by JENARO Gupta 04/10/20 14:13: ADD: Return call from Ling RN at [facility] stating plan has been since before surgery for SNF prior to return and Ling states they really adore Mr. Reich but he can be quite manipulative and knows we are requiring SNF but will try to get out of SNF if at all possible. Ling states that if needed, she would be willing to either call the pt or meet bedside to remind him that they cannot safely accept him back until after SNF. [facility] aware that [facility] has accepted and is the plan at d/c. BF Original Note: DCP SNF Planning: Per MD, pt making progress and may be stable for d/c tomorrow to SNF vs return to [facility]. PORTIA met with pt's Dtr jayda Cornejo ([phone]) who states pt is under the impression that he will be able to d/c directly back to [facility] and not need SNF and family has concerns as pt has not been mobile or using his prosthetic in many months prior to ortho surgery and pt has hx of not being very motivated to participate in therapy. Pt has a hx of [facility] SNF maybe a year or more ago and used his 100 MCR days at SNF [facility] to d/c to [facility]. Family preference is SNF at d/c and aware that [facility] would need to assess pt prior to accepting him back at their facility and they are agreeable with SW coordinating between [facility] and [facility] to determine best d/c plan as pt somewhat confused today. PORTIA confirmed with Sylvia at [facility] that they have accepted pt when ready for discharge and aware it may be tomorrow and will provide transport at d/c to their facility. PASRR done in anticipation of SNF. PORTIA called [facility] and spoke to an RN who states she will pass on the information regarding pt hopeful for [facility] at d/c rather than SNF and they are aware that pt has been trying not to need SNF since before his surgery. RN solid waste analyst will call SW back to get updated pt info and schedule a time to assess pt as he may be ready for d/c by tomorrow if medically stable. Plan: SW to follow for return call from [facility] for assessment to confirm that they cannot accept pt back until after SNF rehab. SW to follow for keeping pt and family updated and [facility] as they will provide transport at d/c. JENARO Gupta
[2020-04-10 12:00] VITALS: BP 145/96; PULSE 97; RESP 18; TEMP 35.9; O2SAT 97
[2020-04-10] MEDS: METFORMIN HCL 500 MG TABLET PO (12:01)
--- NOTE | 2020-04-10 12:10 | PT.IPTN ---
Addendum entered and electronically signed by Tete Ochoa PTA 04/10/20 14:37: Vitals taken during tx: seated at EOB BP 145/89 HR 109 92-94% on 2 L, 94-98% on room air during activity. Cued education on pursed lip breathing for improved saturation. OT provided verbal sats during tx to nurse. Original Note: Current Diagnoses Other chondrocalcinosis, unspecified site (04/08/20) Bilateral primary osteoarthritis of knee (04/08/20) Surgery Performed Operation Date: 04/08/20 12:45 Actual Procedures p Total Knee Arthroplasty(Left) - Zack Hernández MD Physical Therapy Treatment Note M2 PT-IP Current Condition Start: 04/09/20 08:27 Freq: NEEDED Status: Active Protocol: Document 04/09/20 08:58 HH (Rec: 04/09/20 09:40 HH [email or web address]) Physical Therapy Current Condition Current Condition Evaluation Date 04/09/20 Treatment Diagnosis L TKA, R BKA 2 years ago, difficulty in walking. Onset Date 04/08/20 Weight Bearing Status Weight Bearing Status Weight Bear as Tolerated M3 PT-IP Subjective Start: 04/09/20 08:27 Freq: NEEDED Status: Active Protocol: Document 04/10/20 11:06 SP (Rec: 04/10/20 14:19 SP [email or web address]) Subjective Physical Therapy Visit Type Type Treatment Note Visit Start Time 11:06 Visit Stop Time 12:10 Total Visit Minutes 64 Notes Co treatment with OT. Number of WORSHIP DIRECTOR Visits 1 Physical Therapy Visit Comments Patient Comments Pt willing to work with therapy. Patient Goals To return his HALF-WAY if possible. Therapy Pain Assessment Pain When Pain Assessed During Mobility Pain Present Pain Present Pain Reported Location Left Knee Intensity 4 Scale Used Numeric (0 - 10) Description Acute,With Movement Pain Behaviors Facial Grimacing Pain Management Techniques Apply Cold,Re-positioning, Timing of Activity with Medications M4 PT-IP Mobility and Gait Start: 04/09/20 08:27 Freq: NEEDED Status: Active Protocol: Document 04/10/20 11:06 SP (Rec: 04/10/20 14:19 SP [email or web address]) PT-Bed Mobility Assessment Rolling Type of Rolling Roll to Right,Roll to Left Level of Assist Minimal Assistance Supine to Sit Supine to Sit Maximum Assistance,1 Person Assistance,Bedrails Sit to Supine Sit to Supine Moderate Assistance,2 Person Assistance,Bedrails Scooting Scooting to Edge of Bed Moderate Assistance PT-Transfer Assessment Sit to and From Stand Sit to and from Stand Moderate Assistance,2 Person Assistance,Use of Upper Extremities Equipment Transfer Assistive Device Gait Belt,Front Wheeled Walker ,Sliding Board Transfers Transfer Destination Bed,Wheelchair Transfer Technique Stand Step Pivot Transfer Ability Level of Assist Moderate Assistance,2 Person Assistance,Use of Upper Extremities Comments Mobility Comments Pt was in bed when arrived. Pt required Max A of 1 supine<> sitting for trunk righting and LLE repositioning support, SBA scoot to EOB using BUE an RLE BKA. SBA during sitting at EOB while patient don/doff R BK prosthetic. Sit <> stand Mod A of 2 person with cuing for proper hand placement push up from chair and use of FWW, stood approx 2 min, 1 min, 30 sec x2 then with support for slow descent x4, assist of 3rd person for brief mgt during 1 stand then step pivot to w/c with Mod A of FWW repositioning. Unable to assess forward gait secondary to R knee discomfort and decreased activity tolerance and strength. Slide board transfer to R w/c > bed Min A of 1 person including board positioning. Pt was laying in bed with SCD on LLE, bed alarm armed and call light and all needs in reach before left. Gait Assessment Comments Gait Comments Unable to assess secondary to decreased activity tolerance in standing. Stair Climbing Assessment Comments Stair Climbing Comments No need assess, no stairs at [facility] uses elevator. PT-Balance Assessment Sitting Balance and Reactions Static Sitting Balance Ability Normal Dynamic Sitting Balance Ability Normal Standing Balance and Reactions Static Standing Balance Ability Fair Dynamic Standing Balance Ability Poor Device Used FWW M5 PT-IP Objective Assessments Start: 04/09/20 08:27 Freq: NEEDED Status: Active Protocol: Document 04/09/20 08:58 (Rec: 04/09/20 11:09 [email or web address]) Orientation Orientation/Cognition Level of Alertness Alert Orientation Name Language Function Ability No Deficits Noted,Hard of Hearing Safety Awareness Understands Safety Issues Memory Description No Deficits Noted Gross Range of Motion Upper Extremity ROM Assessment Within Functional Limits Lower Extremity ROM Assessment Left Impaired Impairments 15- 88 degrees of L knee AROM Strength Upper Extremity Strength Assessment Within Functional Limits Lower Extremity Strength Assessment Left Impaired Hip 4/5 Knee 3+/5 Ankle 4/5 Sensation Assessment Sensation Gross Sensation Left LE Impaired Sensation Description Pain M6 PT-IP Treatment Start: 04/09/20 08:27 Freq: NEEDED Status: Active Protocol: Document 04/10/20 11:06 SP (Rec: 04/10/20 14:19 SP [email or web address]) Physical Therapy Treatment Exercises Exercises Quad Sets,Heel Slides,Seated Knee Flexion/Extension Education Education Provided Precautions,Weight Bearing Status,Post-Op Packet,Safety Brace Education [place] Other Treatments Other Treatment Performed Pt was able to don/doff R prosthetic himself but required assist for L LE sock/ shoe. M7 PT-IP Assessment and Plan Start: 04/09/20 08:27 Freq: NEEDED Status: Active Protocol: Document 04/10/20 11:06 SP (Rec: 04/10/20 14:19 SP [email or web address]) PT Summary Assessment and Plan Potential Rehabilitation Potential Good Status of Condition at Evaluation Evolving Summary Impairments Pain,ROM,Strength,Balance,Bed Mobility,Transfers,Gait, Activity Tolerance Assessment Summary Pt had a L TKA who is also a R below knee amputee. Pt required Max A of 1 person for trunk righting and LE repositioning during bed mobility using R BKA and BUE, Mod A of 2 persons during sit< >stand and SPT using FWW bed to w/c, Katherine of 1 slide board transfer w/c to bed. Pt reported 4/10 pain L knee and decreased strength and activity tolerance. He is currently far from his baseline and needed extensive assistance for self care. Recommending patient would benefit from skilled rehab to improve his overall strength and mobility. Goals Bed Mobility Goal Contact Guard Assistance Transfer Goal Minimal Assistance,Front Wheeled Walker Gait Goal Minimal Assistance,Front Wheel Walker Gait Distance 5 feet Other Goals stand pivot to BSC, chair, toilet Days to Meet Goals 5 Frequency of Treatment Frequency Of Treatment Twice a Day Treatment Plan Physical Therapy Treatment Plan Bed Mobility Training,Transfer Training,Gait Training, Therapeutic Exercise,Balance Retraining,Post Op Education, Discharge Planning,Hot or Cold Pack,Neuromuscular Re-ed Other Recommendations and Next Treatment log roll for bed mobility d/t Focus R stump quad set , seated heel slide STS and possibly transfer with FWW if possible, slide board education with nursing staff. Recommendations To Nursing Amount of Assist Needed 2 Person Assist Discharge Recommendations PT Discharge Recommendations SNF Rehab Equipment Needed for Home Before FWW if going home and unsafe Discharge with 4WW. Transportation Needs at Discharge Wheelchair/Cabulance
[2020-04-10 15:45] VITALS: BP 118/92; PULSE 111; RESP 18; TEMP 36.1; O2SAT 97
--- NOTE | 2020-04-10 15:51 | PT.IPTN ---
Current Diagnoses Other chondrocalcinosis, unspecified site (04/08/20) Bilateral primary osteoarthritis of knee (04/08/20) Surgery Performed Operation Date: 04/08/20 12:45 Actual Procedures p Total Knee Arthroplasty(Left) - Zack Hernández MD Physical Therapy Treatment Note M2 PT-IP Current Condition Start: 04/09/20 08:27 Freq: NEEDED Status: Active Protocol: Document 04/09/20 08:58 HH (Rec: 04/09/20 09:40 HH [email or web address]) Physical Therapy Current Condition Current Condition Evaluation Date 04/09/20 Treatment Diagnosis L TKA, R BKA 2 years ago, difficulty in walking. Onset Date 04/08/20 Weight Bearing Status Weight Bearing Status Weight Bear as Tolerated M3 PT-IP Subjective Start: 04/09/20 08:27 Freq: NEEDED Status: Active Protocol: Document 04/10/20 15:05 SP (Rec: 04/10/20 17:29 SP [email or web address]) Subjective Physical Therapy Visit Type Type Treatment Note Visit Start Time 15:05 Visit Stop Time 15:51 Total Visit Minutes 46 Notes SLIDER ASSEMBLER assisted with step pivot transfer. Number of HOTEL SERVICES SALES REPRESENTATIVE Visits 2 Physical Therapy Visit Comments Patient Comments Pt willing to work with therapy. Patient Goals Use of bed side commode Therapy Pain Assessment Pain When Pain Assessed During Mobility Pain Present Pain Present Pain Reported Location Left Knee Scale Used no pain scale rating reported Pain Behaviors Facial Grimacing,Holding Area, Restlessness Pain Management Techniques Apply Cold,Re-positioning, Timing of Activity with Medications M4 PT-IP Mobility and Gait Start: 04/09/20 08:27 Freq: NEEDED Status: Active Protocol: Document 04/10/20 15:05 SP (Rec: 04/10/20 17:29 SP [email or web address]) PT-Bed Mobility Assessment Rolling Type of Rolling Roll to Right,Roll to Left Level of Assist Minimal Assistance,1 Person Assistance Supine to Sit Supine to Sit Maximum Assistance,1 Person Assistance,Bedrails Sit to Supine Sit to Supine Moderate Assistance,1 Person Assistance,Bedrails Scooting Scooting to Edge of Bed Standby Assistance PT-Transfer Assessment Sit to and From Stand Sit to and from Stand Minimal Assistance,Use of Upper Extremities Equipment Transfer Assistive Device Gait Belt,Sliding Board Orthotic/Prosthetic Devices or Brace: No Transfers Transfer Destination Bed,Bedside Commode Transfer Technique Lateral Scoot Transfer Ability Level of Assist Minimal Assistance,1 Person Assistance,Use of Upper Extremities Comments Mobility Comments Pt was laying in bed when arrived. Log roll Min A of 1 person to R, R sidelying to sitting Max A of 1 person for trunk righting (pulled from therapist hand while pushing from bed RUE). Pt donned R BK prosthetic I. Lateral scoot slide board bed to BSC Min A of 1 person. Pt was able to complete hygiene care himself, scoot to edge of BSC himself use of BUE and BLE. Sit to stand Max A of 2 persons using FWW and cuign for pushing up from commode, modified step pivot BSC to bed, patient unable to fully upright posture secondary to decrease BLE strength and activity tolerance. Pt lateral scoot up EOB SBA, sit> supine LLE repositioning Mod A. Pt had call light and all needs in reach, applied SCDs LLE SLIDER ASSEMBLER put on evening pressure due to reported to strong during the day. Alarmed bed. Gait Assessment Comments Gait Comments No at this time. Stair Climbing Assessment Comments Stair Climbing Comments No need assess, no stairs at [facility] uses elevator. PT-Balance Assessment Sitting Balance and Reactions Static Sitting Balance Ability Normal Dynamic Sitting Balance Ability Good Standing Balance and Reactions Static Standing Balance Ability Poor Dynamic Standing Balance Ability Poor Device Used FWW M5 PT-IP Objective Assessments Start: 04/09/20 08:27 Freq: NEEDED Status: Active Protocol: Document 04/09/20 08:58 HH (Rec: 04/09/20 11:09 HH [email or web address]) Orientation Orientation/Cognition Level of Alertness Alert Orientation Name Language Function Ability No Deficits Noted,Hard of Hearing Safety Awareness Understands Safety Issues Memory Description No Deficits Noted Gross Range of Motion Upper Extremity ROM Assessment Within Functional Limits Lower Extremity ROM Assessment Left Impaired Impairments 15- 88 degrees of L knee AROM Strength Upper Extremity Strength Assessment Within Functional Limits Lower Extremity Strength Assessment Left Impaired Hip 4/5 Knee 3+/5 Ankle 4/5 Sensation Assessment Sensation Gross Sensation Left LE Impaired Sensation Description Pain M6 PT-IP Treatment Start: 04/09/20 08:27 Freq: NEEDED Status: Active Protocol: Document 04/10/20 15:05 SP (Rec: 04/10/20 17:29 SP [email or web address]) Physical Therapy Treatment Exercises Exercises Quad Sets,Heel Slides,Seated Knee Flexion/Extension Education Education Provided Precautions,Weight Bearing Status,Post-Op Packet,Safety Brace Education [place] Other Treatments Other Treatment Performed Pt was able to don/doff R prosthetic himself. M7 PT-IP Assessment and Plan Start: 04/09/20 08:27 Freq: NEEDED Status: Active Protocol: Document 04/10/20 15:05 SP (Rec: 04/10/20 17:29 SP [email or web address]) PT Summary Assessment and Plan Potential Rehabilitation Potential Good Status of Condition at Evaluation Evolving Summary Impairments Pain,ROM,Strength,Balance,Bed Mobility,Transfers,Gait, Activity Tolerance Assessment Summary Pt required Max A of 1 person for trunk righting and LE repositioning during bed mobility using R BKA and BUE, Min A of 1 person slide board transfer, Mod A of 2 persons during sit<>stand and SPT using FWW BSC to bed. Pt reported pain L knee during STS and challenged quad faclitation, decreased strength and activity tolerance. He is currently far from his baseline and needed physical assist for mobility. Recommending patient would benefit from skilled rehab to improve his overall strength and mobility. Goals Bed Mobility Goal Contact Guard Assistance Transfer Goal Minimal Assistance,Front Wheeled Walker Gait Goal Minimal Assistance,Front Wheel Walker Gait Distance 5 feet Other Goals stand pivot to BSC, chair, toilet Days to Meet Goals 5 Frequency of Treatment Frequency Of Treatment Twice a Day Treatment Plan Physical Therapy Treatment Plan Bed Mobility Training,Transfer Training,Gait Training, Therapeutic Exercise,Balance Retraining,Post Op Education, Discharge Planning,Hot or Cold Pack,Neuromuscular Re-ed Other Recommendations and Next Treatment log roll for bed mobility, Focus seated heel slide, STS and possibly transfer with FWW if possible Recommendations To Nursing Amount of Assist Needed 1 Person Assist Discharge Recommendations PT Discharge Recommendations SNF Rehab Equipment Needed for Home Before FWW if going home and unsafe Discharge with 4WW. Transportation Needs at Discharge Wheelchair/Cabulance
--- NOTE | 2020-04-10 19:19 | PC.NURSE ---
Addendum entered by Henrietta Fox R.N. 04/10/20 22:51: Positioned onto left side as per request. Heavily incontinent of urine in brief and this was changed. Pt with strong upper body strength and able to assist with position changes. Requests fan for heat in room and states we are in [place]. Bed alarm in place. Left pedal pulse present with doppler. Cool extremity. Ice to left knee. Sonido wrap intact to left knee. Now resting quietly in bed with eyes closed; no signs of distress or discomfort. Original Note: Alert, awake, appropriately conversant and able to make needs and wants known to staff members. LLE with sonido wrap dry and intact. Ice to site. 1-2+ pitting edema LLE. Pt rates pain to left knee 4/10 and was medicated as per emar. Poor appetite for dinner and choice present to pt. Pt prefers to eat remnants of lunch tray in room. Bed alarm in place. Assisted to position onto right side in bed. Right BKA well healed. Call light available and pt has demonstrated ability to use.
[2020-04-10 20:25] VITALS: BP 134/96; PULSE 107; RESP 18; TEMP 36.2; O2SAT 93
[2020-04-10] MEDS: TRAZODONE 50 MG TABLET PO (20:39)
[2020-04-10] MEDS: SODIUM CHLORIDE 0.9% FLUSH 10 ML IV (20:39)
[2020-04-11 00:16] VITALS: BP 133/83; PULSE 105; RESP 18; TEMP 36.6; O2SAT 95
[2020-04-11 05:18] VITALS: BP 123/89; PULSE 125; RESP 18; TEMP 36.3; O2SAT 94
[2020-04-11] MEDS: LEVOTHYROXINE 125 MCG TABLET PO (05:34)
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
[2020-04-11 07:22] VITALS: BP 143/86; PULSE 133; RESP 18; TEMP 35.7; O2SAT 92
--- NOTE | 2020-04-11 08:27 | PM.DS.1 ---
History of Present Illness History of Present Illness Date Patient Seen: 04/11/20 Time Patient Seen: 08:27 Chief complaint: [id number] Narrative: The history and physical is contained in the chart in a previously completed note. Please refer to that note for this information. Discharge Providers Provider Date of admission: 04/08/20 10:50 Discharge Date: 04/11/20 Consults: 04/08/20 18:02 Consult to Discharge Planning Routine Comment: Comorbidities include DM and R below knee amp Consult to Physical Therapy Evaluate & Treat Comment: Physician Instructions: postop TKA protocol 04/09/20 14:14 Consult to Occupational Therapy Evaluate & Treat Comment: Physician Instructions: Evaluate and treat Discharge provider: Zack Hernández MD Summary Hospital Course Discharge Diagnosis: 1. Left knee osteoarthritis 2. Post hemorrhagic anemia 3. Status post right below-knee amputation 4. Diabetes mellitus Hospital Course: The patient was admitted to the hospital and taken directly to the operating room where he underwent a left total knee replacement without difficulty. He was stable throughout his postoperative course but made slow progress due to the presence of his contralateral amputation. Postoperative day 3 he was felt to be stable for [facility] to a [facility] facility. Status at Discharge Cognitive/behavioral status at discharge: oriented Functional status at discharge: uses cane/walker Overall status at discharge: patient is progressing back to baseline Time Spent with Patient Time spent: Less than 30 minutes Exam Vital Signs (past 8 hours): - 04/11/20 05:18 Temperature 97.4 F L Pulse Rate 125 H Respiratory Rate 18 Blood Pressure 123/89 Pulse Oximetry 94 Oxygen Delivery Method Room Air Oxygen Flow Rate 0 Narrative Exam Narrative: Left knee wound is dressed with no drainage on the bandage. Calf is soft. Light touch and motion are intact in the left lower extremity. Objective Labs Result Diagrams: 04/09/20 06:20 Discharge Plan Discharge Plan Patient Disposition: SNF Transfer to: [facility] Discharge orders & Medications Prescriptions: New acetaminophen 325 mg Tablet 650 mg PO TID 30 Days Qty: 180 RF: 0 hydromorphone 2 mg Tablet 2 mg PO Q4HR PRN (Reason: Pain, Severe (7-10)) Qty: 40 RF: 0 Continued furosemide 40 mg Tablet 40 mg PO DAILY RF: 0 atorvastatin 20 mg Tablet 20 mg PO DAILY RF: 0 trazodone 50 mg Tablet 50 mg PO BEDTIME RF: 0 metoprolol succinate 100 mg Tablet Extended Release 24 Hr 50 mg PO DAILY RF: 0 aspirin 81 mg Tablet,Delayed Release (Dr/Ec) 81 mg PO DAILY RF: 0 tramadol 50 mg Tablet 50 mg PO Q6H PRN (Reason: Breakthrough Pain) RF: 0 ferrous sulfate 325 mg (65 mg iron) Tablet 325 mg PO DAILY RF: 0 metformin 1,000 mg Tablet 1,000 mg PO TID RF: 0 omeprazole 20 mg Capsule,Delayed Release(Dr/Ec) 20 mg PO DAILY RF: 0 duloxetine 30 mg Capsule,Delayed Release(Dr/Ec) 30 mg PO DAILY RF: 0 levothyroxine 125 mcg Capsule 125 mcg PO DAILY RF: 0 Pradaxa 150 mg Capsule 150 mg PO BID RF: 0 potassium chloride 10 mEq Capsule, Extended Release 10 meq PO DAILY RF: 0 fluoxetine 10 mg Tablet 10 mg PO DAILY RF: 0 Follow up/Referrals: Zack Hernández MD [Physician] - 2 Weeks Discharge Health Status Multidrug resistant organism: No MDRO Precautions: [place] Diet/Activity/Treatments Diet: Diet as Tolerated and Carb-consistent/Diabetic Liquid consistency: Normal/Thin Food texture: Regular Activity: You may bear weight as tolerated on your left leg. Cold/Heat Therapy: Apply ice to the left knee for 15 minutes every hour as needed for pain control. Skin/Wound/Dressing Care Report to your healthcare provider any signs of infection, such as:: chills, fever, night sweats, increased pain, unusual drainage and unusual redness Dressing: Leave the dressing intact until follow-up at orthopedics in 2 weeks. You may shower with the dressing in place. If the center strip of the dressing becomes saturated with either water or blood, please call the office. Special Rehabilitation Services Reason for rehabilitation: Post-operative therapy and Other Rehab type: Physical therapy and Occupational therapy Restrictions to mobility: The patient may bear weight as tolerated on his left leg. He has a right below-knee amputation which requires a prosthetic. Visit Report/Discharge Packet Instructions: DI for Knee Replacement, DI for Prescription Opioid Use
[2020-04-11] MEDS: ATORVASTATIN 20 MG TABLET PO (09:04)
[2020-04-11] MEDS: DABIGATRAN 75 MG CAPSULE 150 MG PO (09:04)
[2020-04-11] MEDS: DULOXETINE 30 MG CAPSULE PO (09:04)
[2020-04-11] MEDS: ACETAMINOPHEN 325 MG TABLET 650 MG PO (09:04)
[2020-04-11] MEDS: ASPIRIN EC 81 MG TABLET PO (09:04)
[2020-04-11] MEDS: METFORMIN HCL 500 MG TABLET 1000 MG PO (09:04)
[2020-04-11] MEDS: DOCUSATE 100 MG CAPSULE PO (09:04)
[2020-04-11] MEDS: FLUoxetine 10 MG CAPSULE PO (09:05)
[2020-04-11] MEDS: PANTOPRAZOLE 20 MG TABLET PO (09:05)
[2020-04-11] MEDS: FERROUS SULFATE 325 MG TABLET PO (09:05)
[2020-04-11] MEDS: POTASSIUM CHLORIDE 10 MEQ TAB PO (09:05)
[2020-04-11] MEDS: METOPROLOL ER 50 MG TABLET PO (09:05)
[2020-04-11] MEDS: FUROSEMIDE 40 MG TABLET PO (09:05)
[2020-04-11] MEDS: HYDROMORPHONE 2 MG TABLET PO (09:05)
[2020-04-11] MEDS: INSULIN ASPART 100 UNIT/ML INSULN PEN SUBCUT (09:06)
--- NOTE | 2020-04-11 10:08 | PT-IP ANOTE ---
Pt declined therapy treatment x2 attempts this morning, initially having pain then at 10 am stated I am not feeling pain but very tired and I want enough energy for DC transfer to [facility] in later morning.
--- NOTE | 2020-04-11 10:27 | OT.IP.TRT ---
Current Diagnoses Other chondrocalcinosis, unspecified site (04/08/20) Bilateral primary osteoarthritis of knee (04/08/20) Surgery Performed Operation Date: 04/08/20 12:45 Actual Procedures p Total Knee Arthroplasty(Left) - Zack Hernández MD Occupational Therapy Treatment Note M2 OT-IP Current Condition Start: 04/10/20 15:50 Freq: Status: Active Protocol: Document 04/10/20 11:06 [facility] (Rec: 04/10/20 16:16 [facility] [id number]) Occupational Therapy Current Condition Current Condition Evaluation Date 04/10/20 Treatment Diagnosis L TKA, decreased self care and mobility Diagnosis Onset Date 04/08/20 Weight Bearing Status Weight Bearing Status Weight Bear as Tolerated M3 OT- IP Subjective and Pain Start: 04/10/20 15:50 Freq: Status: Active Protocol: Document 04/11/20 10:28 [facility] (Rec: 04/11/20 10:39 [facility] [id number]) OT- Subjective Occupational Therapy Visit Type Type Treatment Note Visit Start Time 10:06 Visit Stop Time 10:27 Total Visit Minutes 21 Occupational Therapy Visit Comments Patient Comments Pt states would rather just clean up and versus get up and try to transfer and walk. Patient/Caregiver Goals To get stronger and go home. OT Pain Assessment Pain When Pain Assessed At Rest Pain Present Pain Present Denied Pain M4 OT- IP ADL's Start: 04/10/20 15:50 Freq: Status: Active Protocol: Document 04/11/20 10:28 [facility] (Rec: 04/11/20 10:39 [facility] [id number]) OT ADL-Bathing Bathing Type Bathing Type Sponge Bath General Evaluation Bathing Ability Maximal Assistance Areas Needing Assistance Wash/Dry Back,Wash/Dry Perineal Area,Wash/Dry Lower Extremities Comments OT Bathing Comments Pt able to sit at the edge of the bed after assist and then able to help to wash his face,arms and body. Pt. getting tried and then nursing aid to assist to complete for bathing needs. M6 OT- IP Functional Cognition Start: 04/10/20 15:50 Freq: Status: Active Protocol: Document 04/11/20 10:28 [facility] (Rec: 04/11/20 10:39 [facility] [id number]) Cognitive Factors Limiting Selfcare Function Cognitive Ability Level of Alertness Alert Patient Orientation Name,Age,Birthday,Month,Date, Year,Day of Week,Place, Situation Attention Span Ability Capable of Focused Attention, Capable of Sustained Attention Ability to Follow Commands Able to Follow Multi-Step Commands Cognitive Comments Cognitive Assessment Comments Pt at baseline for cognitive needs. M7 OT- IP Mobility and Balance Start: 04/10/20 15:50 Freq: Status: Active Protocol: Document 04/11/20 10:28 [facility] (Rec: 04/11/20 10:39 [id number] OT- Bed Mobility Assessment Rolling Type of Rolling Bilateral Level of Assistance Moderate Assistance Supine to Sit Supine to Sit Assist Moderate Assistance OT-Transfer Assessment Comments Mobility Comments HOB already up, pt heavy use of bed rail and therapist assist to help with LLE so pt able to sit up at the edge of the bed. Pt able to assist to roll with MODA and bed rail side to side in order to assist to change out his brief . OT- Gait Assessment Comments Gait Ability Comments No at this time. OT- Balance Assessment Sitting Balance and Reactions Static Sitting Balance Ability Normal Dynamic Sitting Balance Ability Good M8 OT- IP Objective Assessments Start: 04/10/20 15:50 Freq: Status: Active Protocol: Document 04/10/20 11:06 [facility] (Rec: 04/10/20 16:16 [facility] [id number]) OT Gross Range of Motion Upper Extremity Range of Motion Assessment Within Functional Limits OT Strength Upper Extremity Strength Assessment Within Functional Limits OT-Muscle Tone Assessment Muscle Tone WNL Yes M9 OT- IP Assessment and Plan Start: 04/10/20 15:50 Freq: Status: Active Protocol: Document 04/11/20 10:28 [facility] (Rec: 04/11/20 10:39 [id number] OT Summary Assessment and Plan Potential Rehabilitation Potential Good Analytic Complexity at Evaluation Low Summary OT Impairments Pain,Functional Mobility, Grooming,Dressing,Toileting, Bathing,Toilet Transfers, Shower Transfers,Activity Tolerance Progress Towards Goals Progressing Toward Goals Assessment Summary Pt able to participate in sponge bath today and improvement for log rolling and bed mobility needs. Pt will benefit from skilled rehab prior to going home to improve his activity tolerance , strength with LLE so able to return to doing his Adl and functional mobility needs on his own. Goals Grooming Goal Independent Dressing Goal Independent Toileting Goal Independent Bathing Goal Independent Toilet Transfer Goal Independent Shower Transfer Goal Independent Days to Meet Goals 25 Frequency of Treatment Frequency Of Treatment Once a Day Treatment Plan OT Treatment Plan ADL Training,Functional Mobility,Patient/Family Education,Discharge Planning Discharge Recommendations OT Discharge Recommendations SNF Rehab Transportation Needs at Discharge Wheelchair/Cabulance
[2020-04-11 11:44] VITALS: BP 133/80; PULSE 116; RESP 15; TEMP 36.1; O2SAT 96
--- NOTE | 2020-04-11 12:12 | CM.DPNOTE ---
DC Note: DC order in place and patient/family remain agreeable to DC to [facility]. Placed call to Sylvia at [facility]; w/c p/u scheduled for 1129, updated MARICEL Rubio. Faxed completed and signed med list, Rx, and completed PASRR to [facility]. Also faxed confirmation of COVID Neg testing and updated therapy notes per request. Updated MARICEL Rubio and provided N2N number p: [facility] via w/c JENARO Khanna
== END 2020-04-11 11:50 | DRG 470 ==
PROVIDERS: Admitting Provider Orthopaedic Surgery; Referring Provider Orthopaedic Surgery; Visit Provider Orthopaedic Surgery
PROC: 0SRD0JZ Replacement of Left Knee Joint with Synthetic Substitute, Open Approach (ICD-10-PCS; CPT 27447; principal; 2020-04-08 12:45)
DX: M17.12 Unilateral primary osteoarthritis, left knee (principal); I42.9 Cardiomyopathy, unspecified; M11.262 Other chondrocalcinosis, left knee; E07.9 Disorder of thyroid, unspecified; K21.9 Gastro-esophageal reflux disease without esophagitis; E11.40 Type 2 diabetes mellitus with diabetic neuropathy, unspecified; Z79.84 Long term (current) use of oral hypoglycemic drugs; F32.9 Major depressive disorder, single episode, unspecified; I48.91 Unspecified atrial fibrillation; Z87.891 Personal history of nicotine dependence; Z95.0 Presence of cardiac pacemaker; Z89.511 Acquired absence of right leg below knee; Z11.59 Encounter for screening for other viral diseases; Z01.812 Encounter for preprocedural laboratory examination
CPT/HCPCS: 36415; 73560; 82962; 85014; 85018; 87635; 94762; 97110; 97163; 97165; 97530; 97535; C1776; C9290; J0690; J1170; J1885; J2250; J2270; J2274; J2405; J3010